=== PATIENT | male | born 1965 | race Caucasian/White ===

== ENCOUNTER 2019-04-19 06:01 | Emergency (ER) | payer SELFPAY ==
[~2019-04-19] VITALS: Ht 177.8 cm; Wt 106.6 kg
--- NOTE | 2019-04-19 06:45 | Diagnostic Imaging Report ---
PELVIS AP 1-2 VIEWS - 1 views HISTORY: Pain COMPARISON: None available. FINDINGS: Bones: No acute displaced fracture. Osseous alignment is within normal limits. Joints: No malalignment. Soft tissues: Calcified tubular structures in the pelvis, probably vascular. IMPRESSION: No acute radiographic abnormality. Signed by: Dr. Darwin Garrison MD on 04/19/2019 6:41 AM
--- NOTE | 2019-04-19 06:45 | Diagnostic Imaging Report ---
HIP RIGHT 2-3 VW (+/- PELVIS) - 3 views HISTORY: Pain COMPARISON: None available. FINDINGS: Bones: No acute displaced fracture. Osseous alignment is within normal limits. Joints: No malalignment. Soft tissues: The soft tissues appear unremarkable. IMPRESSION: No acute fracture or dislocation of the right hip. Signed by: Dr. Darwin Garrison MD on 04/19/2019 6:42 AM
--- NOTE | 2019-04-19 06:48 | Diagnostic Imaging Report ---
Lumbar Spine Radiographs: 3 views HISTORY: Pain COMPARISON: None available. DISCUSSION: Some of the osseous structures are partially obscured by stool and bowel gas. There are five non-rib bearing lumbar vertebral bodies. The alignment of the spine is within normal limits. No displaced fracture is identified. Minimal L4 superior endplate sclerosis and questionable compression. Multilevel degenerative changes and anterior osteophytosis. Lower lumbar spine facet arthropathy. IMPRESSION: Minimal L4 superior endplate sclerosis and questionable minimal compression. Recommend correlation with point tenderness. Otherwise, no evidence of acute displaced fracture or dislocation. Multilevel degenerative changes. Signed by: Dr. Darwin Garrison MD on 04/19/2019 6:44 AM
--- NOTE | 2019-04-19 07:00 | NUR ---
RECEIVED REPORT FROM ELVIS Mansfield
[2019-04-19] MEDS ORDERED: KETOROLAC TROMETHAMINE 60 MG/2 ML VIAL IM ONE (07:30)
[2019-04-19] MEDS ORDERED: LISINOPRIL 20 MG TAB PO ONE (07:30)
[2019-04-19] MEDS ORDERED: HYDROCODONE/APAP 7.5MG-325MG 1 EA TAB PO ONE (07:45)
--- NOTE | 2019-04-19 07:56 | Diagnostic Imaging Report ---
CT LUMBAR SPINE WO HISTORY: Fall COMPARISON: Lumbar spine radiographs 04/19/2019 TECHNIQUE: Axial CT images of the lumbar spine were obtained without contrast. Coronal and sagittal reconstructions obtained from the axial data. One or more of the following dose reduction techniques were used: Automated exposure control, adjustment of the mA and/or kV according to patient size, and/or utilization of iterative reconstruction technique. DISCUSSION: There are 5 nonrib-bearing lumbar vertebral bodies. Lumbar lordosis is preserved. There is no significant scoliosis or subluxation. No acute fracture, compression deformity, or destructive osseous lesion is seen. Subtle, chronic-appearing deformity of the left L2 transverse process may be from remote fracture. Small corticated defect in the left L3 transverse process may be congenital or from chronic minimally displaced fracture. The paravertebral and paraspinal soft tissues are unremarkable. Mild to moderate multilevel spondylosis is most prominent at L1-L2. L1-L2: At least mild canal stenosis due to disc bulge and ligamentum flavum thickening. No gross foraminal stenosis. L2-L3: No gross canal or foraminal stenosis. L3-L4: At least mild to moderate canal stenosis due to disc bulge and ligamentum flavum thickening. Mild bilateral foraminal stenoses due to disc bulge and facet arthrosis. L4-L5: Mild bilateral foraminal stenoses due to disc bulge and facet arthrosis. No gross canal stenosis. L5-S1: Mild bilateral foraminal stenoses due to disc bulge and facet arthrosis. No gross canal stenosis. Mild scattered atherosclerotic calcifications are present. IMPRESSION: 1. No acute osseous abnormalities. 2. Mild to moderate multilevel spondylosis, most prominent at L1-L2, as described above. Signed by: Dr. Sam Eugene M.D. on 04/19/2019 7:53 AM
== END 2019-04-19 08:25 | disposition home or self-care (01) ==
LOC: ER 06:01
DX: S39.012A Strain of muscle, fascia and tendon of lower back, initial encounter (principal); W12.XXXA Fall on and from scaffolding, initial encounter; Y92.22 Religious institution as the place of occurrence of the external cause; M43.06 Spondylolysis, lumbar region; Z89.511 Acquired absence of right leg below knee
CPT/HCPCS: 72100; 72131; 72170; 73502; 99283; J1885